=== PATIENT | female | born 1965 | race Caucasian/White ===

== ENCOUNTER 2025-08-04 22:12 | Emergency (ER) | payer OTHER, SELFPAY ==
[2025-08-04 22:18] VITALS: BP 171/90
[2025-08-04 22:34] LABS: Hematocrit 39.5 % (37.0-47.0); Hemoglobin 13.3 g/dL (12.0-16.0); Mean Corp Hgb Conc. 33.7 g/dL (33.0-37.0); Mean Corpuscular Volume 87.2 fL (81.0-99.0); Nucleated Red Blood Cells % 0 %; Platelet Count 348 10^3/uL (130-400); Red Cell Dist. Width 12.6 % (11.5-14.5)
[2025-08-04 22:56] LABS: ALT (SGPT) 26 U/L (0-35); AST (SGOT) 20 U/L (14-36); Albumin 4.6 g/dl (3.5-5.0); Alkaline Phosphatase 68 U/L (38-126); Blood Urea Nitrogen 16 mg/dl (7-17); Calcium 9.9 mg/dl (8.4-10.2); Carbon Dioxide 27 mmol/L (22-30); Chloride 101 mmol/L (98-107); Glucose 129 mg/dl (70-99); Potassium 3.9 mmol/L (3.5-5.1); Sodium 133 mmol/L (135-145); Total Protein 7.2 g/dl (6.3-8.2); eGFR > 60.00
[2025-08-04 23:08] LABS: Troponin I < 0.012 ng/ml
[2025-08-04 23:40] VITALS: BP 129/74
[2025-08-05] VITALS: BP 141/73
[2025-08-05 00:02] VITALS: BMI 38.4
[2025-08-05 00:40] LABS: Troponin I < 0.012 ng/ml
--- NOTE | 2025-08-05 00:53 | ED.GENMED ---
History of Present Illness
General
Chief Complaint: Chest Pain
Source: patient
Exam Limitations: none
Time Seen by Provider: 08/04/25 23:32
Nursing documentation reviewed up to this point in time: agreed with
History of Present Illness
History of Present Illness:
60-year-old female with history of HTN presents for chest pain. She states that 9:00 PM sitting watching a movie in a theater she developed mid chest pain, got pale, felt faint, got clammy symptoms lasted about 1/2-hour. Prior to that she ate
shrimp tacos which 'were not that good.' She does have a history of frequent heartburn and takes nothing for it.
She denies nausea or vomiTing. She got up and walked outside and felt better. She has had no further chest pain.
Past History
Past History
ED Past Medical History: HTN
ED Past Surgical History: Gynecological and Orthopedic
Social History
Tobacco: Non-smoker
Alcohol: Occasional
Personal:
Living: with family
Employment: Employed
Review of Systems
Review of Systems
Allergies reviewed?: Yes
All Other Systems: ROS reviewed and negative except as documented in HPI and ROS
Phy Exam
Physical Exam
Physical Exam:
GENERAL: No acute distress. A&Ox3.
CONSTITUTIONAL: Afebrile.
EYES: clear, conjunctivae normal
ENMT: moist mucus membranes, Pharynx nl
RESPIRATORY: Regular respirations, nonlabored, lungs clear.
CARDIOVASCULAR: Regular rate and rhythm, no murmurs, no rubs.
GI: Soft, nontender, normal BS
MUSCULOSKELETAL: Moves with ease. Well perfused.
SKIN: Warm, dry, pink
PSYCH: Normal mood and affect. Well kept, interactive and appropriate
NEUROLOGIC: Awake, alert and oriented. No focal neurological deficits
Scores
Heart Score for Chest Pain Patients
STEMI patient?: Not applicable
Course
Orders/Labs/Results
Orders:
Orders
08/04/25 22:13
Electrocardiogram (*1) Urgent
Reason for Study: Chest Pain
Cardiac Monitoring- Treatment ONCE
EKG- Treatment ONCE
08/04/25 22:28
Complete Blood Count/With Diff Urgent
Comprehensive Metabolic Panel Urgent
Troponin I Urgent
08/05/25 00:01
CR Chest - 2 Views Urgent
Comment:
Reason For Exam: chest pain
08/05/25 00:10
Troponin I Urgent
Abnormal Lab Results
08/04/25
22:28
Absolute Monos (auto) 0.7 H 10^3/uL
(0.1-0.6)
Lymphocytes % 16.6 L %
(20.5-51.1)
Sodium 133 L mmol/L
(135-145)
Glucose 129 H mg/dl
(70-99)
08/04/25 22:28
08/04/25 22:28
Vital Signs
Initial and Last Documented VS:
Initial Vital Signs
Temp Pulse Resp BP Pulse Ox
98.4 F 79 18 171/90 95
08/04/25 22:18 08/04/25 22:18 08/04/25 22:18 08/04/25 22:18 08/04/25 22:18
Last Documented Vital Signs
Temp Pulse Resp BP Pulse Ox
98.4 F 78 19 141/73 97
08/04/25 22:18 08/05/25 00:30 08/05/25 00:30 08/05/25 00:00 08/05/25 00:57
MDM/Problems Addressed
Differential Diagnosis Includes:
GERD, ACS, [place]
MDM/Problems Addressed:
60-year-old female with history of HTN presents for chest pain. She states that 9:00 PM sitting watching a movie in a theater she developed mid chest pain, got pale, felt faint, got clammy symptoms lasted about 1/2-hour. Prior to that she ate
shrimp tacos which 'were not that good.' She does have a history of frequent heartburn and takes nothing for it.
She denies nausea or vomiTing. She got up and walked outside and felt better. She has had no further chest pain.
EKG NSR
CBC normal
CMP with no clinically significant abnormalities
Chest x-ray NAD
Troponin #1 within normal limits
08/05/2025 1:00 AM
Troponin #2 normal
No indication of cardiac etiology of her symptoms
Will recommend omeprazole and follow-up with PCP if symptoms persist.
She has an appointment with her PCP on 08/17
*Pulse Oximetry
SaO2: 97
Oxygen Mode of Delivery: Room air
Patient hypoxic: no
*EKG
EKG Intrepretation Date: 08/04/25
Interpretation: normal
Heart Rate: 74
Rate: normal
Rhythm: sinus
[place]: normal axis
Interval: normal interval
QRS Pattern: normal QRS
Ischemia: no ischemia
*Critical Care Note
Total Time (30-74mins, 75-104mins- exclusive of procedures): Not Applicable
ED Attending Note
-
Portions of this chart may have been created with voice recognition software.� Occasional wrong word or��sound alike� substitutions may have occurred due to the inherent limitations of voice recognition software.
Discharge Plan
Departure
Patient Disposition: Home (Routine Discharge)
Date of Disposition: 08/05/25
Time of Disposition: 01:01
Patient with high blood pressure during this ER visit?: No
Condition: Good
Discharge Problem:
Atypical chest pain
Instructions: Chest Pain That Is Not Caused by the Heart (DC), Acid Reflux and GERD in Adults (DC)
Referrals:
Lobo Sr MD [Active, Gastroenterology] - As needed
Mercy Talbot MD [Family Provider, Family Practice]
Activity Restrictions/Additional Instructions:
As we discussed, nothing worrisome in your workup here today.
Your symptoms may be related to GERD or indigestion and I recommend Omeprazole 10 mg daily
I have provided you the name of a GI doctor to use if needed if your indigestion persists
Interventions
Interventions:
*Risk Screen - Suicide Last Done: 08/04/25 22:18
*General Assessment Last Done: 08/04/25 22:18
*Neglect/Abuse Screening Last Done: 08/04/25 22:18
*ED- Fall Risk Assessment Last Done: 08/05/25 00:03
*ED COVID-19 Vaccine History Last Done: 08/05/25 00:03
*ED Influenza Vaccine History Last Done: 08/05/25 00:03
*Nursing Disposition Last Done: 08/05/25 01:12
ED- Cardiac Assessment Last Done: 08/05/25 00:03
Discharge Date and Time
Discharge Date/Time: 08/05/25 01:13
Print Language: HUNGARIAN
== END 2025-08-05 01:13 | disposition home or self-care (01) ==
LOC: EMR 22:12
PROVIDERS: Emergency Medicine; Registered Nurse; EMERGENCY PHYSICIAN Emergency Medicine; FAMILY PHYSICIAN Family Medicine
DX: R07.89 Other chest pain (principal); I10 Essential (primary) hypertension
CPT/HCPCS: 99284; 71046; 80053; 84484; 85025; 93005